=== PATIENT | female | born 1950 | race African-American/Black ===

== ENCOUNTER 2018-07-06 11:28 | Emergency (ER) | payer BC ==
--- NOTE | 2018-07-06 12:43 | RAD ---
Right elbow 2 views HISTORY: Right elbow injury. FINDINGS: Radiocapitellar alignment is maintained. Minimal osteophytosis. No acute fracture, dislocat ion, or fluid distention of the joint capsule. IMPRESSION: No acute osseous abnormalities are demonstrated.
--- NOTE | 2018-07-06 12:43 | RAD ---
XR Knee Rt 4 View STANDARD: 07/06/2018 11:37 AM CLINICAL INDICATION: Pain COMPARISON: None. FINDINGS: Fracture:No fracture. Arthropathy:Mild arthropathy. Incidental findings:None of significance. IMPRESSION: 1. No acute osseous abnormality.
--- NOTE | 2018-07-06 12:44 | RAD ---
XR Lumbar Spine 2 Or 3 View: 07/06/2018 11:37 AM CLINICAL INDICATION: Pain COMPARISON: None. FINDINGS: Fracture:No fracture. Arthropathy:Mild arthropathy. Incidental findings:Vascular disease IMPRESSION: 1. No acute osseous abnormality.
[2018-07-06] MEDS ORDERED: Ketorolac Tromethamine 30 MG/ML VIAL ONE (13:05)
== END 2018-07-06 14:06 | disposition home or self-care (01) ==
LOC: ERS 11:28
DX: M25.561 Pain in right knee (principal); I10 Essential (primary) hypertension; F41.9 Anxiety disorder, unspecified; Z79.899 Other long term (current) drug therapy; V49.9XXA Car occupant (driver) (passenger) injured in unspecified traffic accident, initial encounter
CPT/HCPCS: 72100; 96372; J1885